=== PATIENT | female | born 1985 | race Caucasian/White ===

== ENCOUNTER 2022-12-20 22:16 | Emergency (ER) | payer MEDICAID ==
[2022-12-20] MEDS ORDERED: Sodium Chloride 0.9% 1,000 ML IV STA (22:38)
[2022-12-20] MEDS ORDERED: Ondansetron 4 MG/2 ML SDV IVPUSH ONE (22:38)
[2022-12-20] MEDS ORDERED: Morphine 4 MG/ML Syringe IVPUSH ONE (22:57)
[2022-12-20] MEDS ORDERED: HYDROmorphone 0.5 MG/0.5 ML Syringe IVPUSH ONE ×2 (23:02→23:35)
[2022-12-20] MEDS ORDERED: Sodium Chloride 0.9% 1,000 ML IV ONE (23:19)
[2022-12-20 23:29] LABS: BASOPHILS ABSOLUTE AUTO 0.1 K/mm3 (0.0-0.2); BASOPHILS PERCENT AUTO 0.6 % (0.0-1.0); EOSINOPHILS ABSOLUTE AUTO 0.5 K/mm3 (0.0-0.4); EOSINOPHILS PERCENT AUTO 3.4 % (0.0-6.0); HEMATOCRIT 43.2 % (37.0-47.0); HEMOGLOBIN 14.4 gm/dl (12.0-16.0); IMMATURE GRAN ABSOLUTE AUTO 0.08 K/mm3 (0.00-0.05); IMMATURE GRAN PERCENT AUTO 0.5 % (0.0-0.4); LYMPHOCYTES ABSOLUTE AUTO 6.1 K/mm3 (1.0-4.8); LYMPHOCYTES PERCENT AUTO 39.3 % (24.0-44.0); MEAN CORPUSCULAR HEMOGLOBIN 28.5 pg (28.0-32.0); MEAN CORPUSCULAR HGB CONC 33.3 g/dl (32.0-36.0); MEAN CORPUSCULAR VOLUME 85.4 fl (83.0-99.0); MEAN PLATELET VOLUME 9.4 fl (9.4-12.3); MONOCYTES ABSOLUTE AUTO 1.3 K/mm3 (0.0-0.8); MONOCYTES PERCENT AUTO 8.6 % (0.0-8.0); NEUTROPHILS ABSOLUTE AUTO 7.3 K/mm3 (1.8-7.7); NEUTROPHILS PERCENT AUTO 47.6 % (41.0-71.0); PLATELET COUNT,PLT 481 K/mm3 (150-400); RED BLOOD CELL COUNT 5.06 M/mm3 (4.10-5.30); WHITE BLOOD CELL COUNT,WBC 15.41 K/mm3 (3.9-11.3)
[2022-12-20 23:38] LABS: A/G RATIO 1.2 (1-2); ALBUMIN 4.1 g/dl (3.4-5.0); ANION GAP 16.5 (5-15); BILIRUBIN TOTAL 0.3 mg/dL (0.2-1.0); BUN/CREATININE RATIO 23.3 (14-18); CALCIUM 9.4 mg/dL (8.5-10.1); CREATININE 0.6 mg/dL (0.55-1.02); EST CRCL DRUG DOSING (CG) 121.35 mL/min; POTASSIUM,K 3.5 mEq/L (3.5-5.1); PROTEIN TOTAL,TP 7.6 g/dl (6.4-8.2)
[2022-12-21] MEDS ORDERED: Iopamidol 755 Mg/ML 100 ML Bottle IVPUSH ONE (00:04)
[2022-12-21] MEDS ORDERED: Sodium Chloride 0.9% 100 ML IV SCH (00:15)
[2022-12-21] MEDS ORDERED: Ondansetron 4 MG/2 ML SDV IVPUSH ONE (00:28)
[2022-12-21] MEDS ORDERED: HYDROmorphone 1 MG/ML Syringe IM ONE (00:38)
[2022-12-21] MEDS ORDERED: HYDROmorphone 1 MG/ML Syringe IVPUSH ONE (00:41)
[2022-12-21] MEDS ORDERED: Ketorolac 30 MG/ML SDV IVPUSH ONE (05:13)
[2022-12-21 05:34] LABS: PROTEIN,CSF 23.6 mg/dl (15-45)
[2022-12-21 07:23] LABS: APPEARANCE CSF TUBE 1 CLEAR (CLEAR)
== END 2022-12-21 07:26 | disposition home or self-care (01) ==
LOC: JD.ED 22:16
DX: G43.909 Migraine, unspecified, not intractable, without status migrainosus (principal)
CPT/HCPCS: 36415; 62270; 70450; 70496; 80053; 82945; 84157; 85025; 87070; 87205; 89050; 93005; 96361; 96374; 96375; 96376; 99284; J1170; J1885; J2405; J3490; J7030; Q9967

== ENCOUNTER 2022-12-21 19:55 | Emergency (ER) | payer MEDICAID ==
[2022-12-21] MEDS ORDERED: LORazepam 2 MG/ML SDV IM ONE (20:16)
[2022-12-21] MEDS ORDERED: Ketorolac 30 MG/ML SDV IVPUSH ONE ×2 (20:16→21:37)
[2022-12-21] MEDS ORDERED: Sodium Chloride 0.9% 1,000 ML IV ONE (20:16)
[2022-12-21] MEDS ORDERED: Metoclopramide 10 MG Tab PO ONE (20:16)
[2022-12-21] MEDS ORDERED: LORazepam 2 MG/ML SDV IVPUSH ONE (20:25)
[2022-12-21 20:26] LABS: BASOPHILS ABSOLUTE AUTO 0.1 K/mm3 (0.0-0.2); BASOPHILS PERCENT AUTO 0.4 % (0.0-1.0); EOSINOPHILS ABSOLUTE AUTO 0.1 K/mm3 (0.0-0.4); EOSINOPHILS PERCENT AUTO 0.9 % (0.0-6.0); HEMATOCRIT 42.1 % (37.0-47.0); HEMOGLOBIN 14.3 gm/dl (12.0-16.0); IMMATURE GRAN ABSOLUTE AUTO 0.05 K/mm3 (0.00-0.05); IMMATURE GRAN PERCENT AUTO 0.3 % (0.0-0.4); LYMPHOCYTES ABSOLUTE AUTO 3.3 K/mm3 (1.0-4.8); LYMPHOCYTES PERCENT AUTO 22.7 % (24.0-44.0); MEAN CORPUSCULAR VOLUME 85.4 fl (83.0-99.0); MEAN PLATELET VOLUME 8.9 fl (9.4-12.3); MONOCYTES ABSOLUTE AUTO 0.9 K/mm3 (0.0-0.8); NEUTROPHILS PERCENT AUTO 69.7 % (41.0-71.0); PLATELET COUNT,PLT 412 K/mm3 (150-400); RED BLOOD CELL COUNT 4.93 M/mm3 (4.10-5.30); WHITE BLOOD CELL COUNT,WBC 14.41 K/mm3 (3.9-11.3)
[2022-12-21] MEDS ORDERED: Metoclopramide 10 MG/2 ML SDV IVPUSH ONE (20:26)
[2022-12-21 20:49] LABS: A/G RATIO 1.2 (1-2); ALBUMIN 4.1 g/dl (3.4-5.0); ANION GAP 15.5 (5-15); BILIRUBIN TOTAL 0.7 mg/dL (0.2-1.0); BUN/CREATININE RATIO 11.3 (14-18); CALCIUM 9.5 mg/dL (8.5-10.1); CREATININE 0.8 mg/dL (0.55-1.02); EST CRCL DRUG DOSING (CG) 76.89 mL/min; POTASSIUM,K 3.5 mEq/L (3.5-5.1); PROTEIN TOTAL,TP 7.5 g/dl (6.4-8.2)
== END 2022-12-21 22:07 | disposition home or self-care (01) ==
LOC: JD.ED 19:55
DX: G43.909 Migraine, unspecified, not intractable, without status migrainosus (principal)
CPT/HCPCS: 36415; 80053; 85025; 96374; 96375; 96376; 99283; J1885; J2060; J2765; J7030

== ENCOUNTER 2022-12-28 22:05 | Inpatient (IN) | payer MEDICAID ==
[2022-12-28] MEDS ORDERED: HYDROmorphone 0.5 MG/0.5 ML Syringe IVPUSH ONE (22:28)
[2022-12-28] MEDS ORDERED: Naloxone 0.4 MG/ML SDV IVPUSH PRN ×2 (22:28→23:11)
[2022-12-28 22:34] LABS: BASOPHILS ABSOLUTE AUTO 0.1 K/mm3 (0.0-0.2); BASOPHILS PERCENT AUTO 0.7 % (0.0-1.0); EOSINOPHILS ABSOLUTE AUTO 0.4 K/mm3 (0.0-0.4); EOSINOPHILS PERCENT AUTO 2.1 % (0.0-6.0); HEMATOCRIT 43.9 % (37.0-47.0); HEMOGLOBIN 14.6 gm/dl (12.0-16.0); IMMATURE GRAN ABSOLUTE AUTO 0.08 K/mm3 (0.00-0.05); IMMATURE GRAN PERCENT AUTO 0.5 % (0.0-0.4); LYMPHOCYTES ABSOLUTE AUTO 2.9 K/mm3 (1.0-4.8); LYMPHOCYTES PERCENT AUTO 16.9 % (24.0-44.0); MEAN CORPUSCULAR HEMOGLOBIN 28.7 pg (28.0-32.0); MEAN CORPUSCULAR HGB CONC 33.3 g/dl (32.0-36.0); MEAN CORPUSCULAR VOLUME 86.2 fl (83.0-99.0); MEAN PLATELET VOLUME 9.4 fl (9.4-12.3); MONOCYTES PERCENT AUTO 5.7 % (0.0-8.0); NEUTROPHILS ABSOLUTE AUTO 12.6 K/mm3 (1.8-7.7); NEUTROPHILS PERCENT AUTO 74.1 % (41.0-71.0); PLATELET COUNT,PLT 395 K/mm3 (150-400); RED BLOOD CELL COUNT 5.09 M/mm3 (4.10-5.30); WHITE BLOOD CELL COUNT,WBC 17.05 K/mm3 (3.9-11.3)
[2022-12-28 23:04] LABS: A/G RATIO 1.2 (1-2); ALANINE AMINOTRANSFERASE,ALT 25 U/L (14-59); ALBUMIN 4.2 g/dl (3.4-5.0); ALKALINE PHOSPHATASE 65 U/L (46-116); ANION GAP 14.6 (5-15); ASPARTATE AMNIOTRANSFERASE,AST 10 U/L (15-37); BILIRUBIN TOTAL 0.3 mg/dL (0.2-1.0); BLOOD UREA NITROGEN,BUN 10 mg/dL (7-18); BUN/CREATININE RATIO 14.3 (14-18); C-REACTIVE PROTEIN <0.2 mg/dL (<1.0); CALCIUM 9.2 mg/dL (8.5-10.1); CARBON DIOXIDE,CO2 26 mEq/L (21-32); CHLORIDE,CL 102 mEq/L (98-107); CREATININE 0.7 mg/dL (0.55-1.02); EST CRCL DRUG DOSING (CG) 87.87 mL/min; ESTIMATED GFR 115 mL/min (>60); GLUCOSE RANDOM 134 mg/dL (70-99); IRON,FE 34 ug/dL (50-170); POTASSIUM,K 3.6 mEq/L (3.5-5.1); PROTEIN TOTAL,TP 7.7 g/dl (6.4-8.2); SODIUM,NA 139 mEq/L (136-145); TSH 1.568 uIU/mL (0.358-3.74)
[2022-12-28] MEDS ORDERED: fentaNYL 100 MCG/2 ML SDV IVPUSH ONE (23:12)
[2022-12-29] MEDS ORDERED: fentaNYL 100 MCG/2 ML SDV IVPUSH ONE (00:04)
[2022-12-29] MEDS ORDERED: Verapamil 80 MG Tab PO SCH (01:54)
[2022-12-29] MEDS ORDERED: predniSONE 1 MG Tab PO ONE (01:57)
[2022-12-29] MEDS: Verapamil 80 MG Tab PO SCH ×3 (02:39→17:40)
[2022-12-29] MEDS ORDERED: predniSONE 20 MG Tab PO ONE (03:00)
[2022-12-29] MEDS ORDERED: fentaNYL 100 MCG/2 ML SDV IVPUSH PRN (03:18)
[2022-12-29] MEDS: Ondansetron 4 MG/2 ML SDV IVPUSH PRN (04:34)
[2022-12-29] MEDS ORDERED: diphenhydrAMINE 50 MG/ML SDV IVPUSH ONE (07:51)
[2022-12-29] MEDS: HYDROmorphone 1 MG/ML Syringe IVPUSH PRN ×5 (08:06→20:50)
[2022-12-29] MEDS ORDERED: Iopamidol 755 Mg/ML 100 ML Bottle IVPUSH ONE (08:07)
[2022-12-29] MEDS ORDERED: Sodium Chloride 0.9% 10 ML Syringe FLUSH PRN (08:07)
[2022-12-29] MEDS ORDERED: Sodium Chloride 0.9% 100 ML IV SCH (08:15)
[2022-12-29] MEDS ORDERED: predniSONE 20 MG Tab PO SCH (09:00)
[2022-12-29] MEDS: oxyCODONE 5 MG Tab PO PRN ×2 (11:27→23:26)
[2022-12-29] MEDS: diphenhydrAMINE 50 MG/ML SDV IVPUSH PRN ×2 (17:39→23:26)
[2022-12-29] MEDS: Sodium Chloride 0.9% 1,000 ML IV SCH (18:20)
[2022-12-30] MEDS: Verapamil 80 MG Tab PO SCH ×2 (02:21→10:06)
[2022-12-30] MEDS: oxyCODONE 5 MG Tab PO PRN ×2 (02:25→06:53)
[2022-12-30] MEDS: Sodium Chloride 0.9% 1,000 ML IV SCH (04:15)
[2022-12-30] MEDS: diphenhydrAMINE 50 MG/ML SDV IVPUSH PRN ×2 (04:16→10:07)
[2022-12-30] MEDS: HYDROmorphone 1 MG/ML Syringe IVPUSH PRN ×2 (04:25→10:07)
[2022-12-30] MEDS: Ondansetron 4 MG/2 ML SDV IVPUSH PRN (06:53)
[2022-12-30] MEDS ORDERED: predniSONE 20 MG Tab PO ONE (09:00)
[2022-12-31] MEDS ORDERED: predniSONE 20 MG Tab PO SCH (09:00)
[2023-01-02] MEDS ORDERED: predniSONE 20 MG Tab PO SCH (09:00)
[2023-01-04] MEDS ORDERED: predniSONE 10 MG Tab PO SCH (09:00)
== END 2022-12-30 14:20 | disposition home or self-care (01) | DRG 65 ==
LOC: JD.ED 22:05 → JD.MS 12-29 02:17 → OBSVTOIN 12-29 16:16
PROVIDERS: ADMIT Hospitalist; ATTEND Hospitalist
DX: I61.9 Nontraumatic intracerebral hemorrhage, unspecified (principal); I67.841 Reversible cerebrovascular vasoconstriction syndrome; I60.9 Nontraumatic subarachnoid hemorrhage, unspecified; F41.9 Anxiety disorder, unspecified; G43.909 Migraine, unspecified, not intractable, without status migrainosus; F12.91 Cannabis use, unspecified, in remission; R51.9 Headache, unspecified; Z79.899 Other long term (current) drug therapy; Z90.89 Acquired absence of other organs; Z87.891 Personal history of nicotine dependence; Z86.16 Personal history of COVID-19
CPT/HCPCS: 36415; 70450 ×2; 70496; 70498; 80053; 83540; 83605; 83735; 84443; 85025; 85652; 86140; 94762; 96374; 96375; 96376; 99285; A9270 ×3; J1170 ×4; J1200; J2405; J3010 ×3; J3490 ×2; J7512; Q9967; G0378; J7030